=== PATIENT | female | born 1950 | race Caucasian/White ===

== ENCOUNTER 2016-10-11 22:16 | Emergency (ER) | payer BC ==
--- NOTE | 2016-10-11 23:18 | ED CLINICAL REPORT ---
Clinical Report - Physicians/Mid Levels [facility] [address] [place] [address] 10/11/2016 22:20 Patient: ENEIDA TAYLOR Time Seen: 22:26; initial patient contact. Arrived- By private vehicle. Historian- patient. HISTORY OF PRESENT ILLNESS Chief Complaint: Injury to right leg. The injury happened just prior to arrival. Occurred at home. The patient sustained a laceration (using a loofah to scrub her legs). Patient is not experiencing pain. Patient denies injury to the head or neck. REVIEW OF SYSTEMS The patient sustained a laceration. No swelling, tingling or suspected foreign body. All systems otherwise negative, except as recorded above. PAST HISTORY ( Hypercholesterolemia. ADDITIONAL SURGERIES: Bunion. Hernia Repair. Hip Surgery. Tonsillectomy.). SOCIAL HISTORY Never smoker. No alcohol use or drug use. ADDITIONAL NOTES The nursing notes have been reviewed with agreement regarding the chief complaint, PMH and patient medications and allergies. PHYSICAL EXAM Vital Signs: 10/11/2016 22:30 BP: 158/71. HR: 70. RR: 16. O2 saturation: 100%. Temp: 97.8 F. Have been reviewed. Hypertensive. Heart rate normal. Respiratory rate normal. Temperature normal. Oxygen saturation normal. Appearance: Alert. Oriented X3. No acute distress. Skin: (Small area of mild, active bleeding overlying an area of spider veins.). Extremities: Right leg: single puncture wound. No erythema, tenderness, swelling, laceration or abrasion. No ecchymosis. Extremities otherwise negative. Neuro, Vascular and Tendons: Vascular status intact. Sensation intact. Motor intact. Tendon function intact. Gait: Normal gait. Neuro: Oriented X 3. PROGRESS AND PROCEDURES Course of Care: 23:16 10/11/16. Bleeding stopped w/ thrombin gelfoam and pressure dressing x 15 minutes. Pt instructed to leave pressure dressing in place until morning and return w/ bleeding lasting longer than 5 minutes w/ direct pressure. Disposition: Discharged home in good and improved condition. Condition: good. CLINICAL IMPRESSION Single superficial skin avulsion of the right lower leg.Treatment not delayed. No infection present or foreign body present. INSTRUCTIONS Warnings: GENERAL WARNINGS: Return or contact your physician immediately if your condition worsens or changes unexpectedly, if not improving as expected, or if other problems arise. Bleeding lasts > 5 minutes with direct pressure. Your Current Medications: CONTINUE TAKING THE FOLLOWING MEDICATIONS: Crestor Oral. Follow-up: Follow up with your doctor if not better. Call for an appointment. Screening today revealed the patient's blood pressure to be in the hypertensive range. The patient should follow up with a primary care provider for blood pressure management. (Electronically signed by Mario Esteves Dr. 10/11/2016 23:19)
--- NOTE | 2016-10-11 23:18 | ED NURSING NOTES ---
Clinical Report - Nurses [facility] [address] [place] [address] 10/11/2016 22:20 [id number] TRI[facility] Triage time 22:26 Oct 11 2016. Acuity: LEVEL 4. Chief Complaint: (bleeding right lateral leg). 22:30 10/11/16. ANA MARIA COMA SCORE: Ana Maria Coma Scale: 15- eyes open spontaneously (4); best verbal response- oriented x 4 (5); best motor response- obeys commands (6). --22:30 Kimberly Cuenca R.N. 22:30 10/11/16. BP: 158/71. HR: 70. RR: 16. O2 saturation: 100%. Temp: 97.8 F. Pain level now 0/10. --22:30 Kimberly Cuenca R.N. Weight: 83.9 kg stated. Height/Length: 65 inches Per Patient. BMI: 30.8. --22:25 Kimberly Cuenca R.N. Medications Crestor Oral. --22:27 Kimberly Cuenca R.N. Allergies Oral steroids. --22:28 Kimberly Cuenca R.N. Medication/allergy information source: the patient. --22:30 Kimberly Cuenca R.N. History Arrived by private vehicle. Historian: patient. Accompanied by family. This started just prior to arrival. ( likely ruptured varicose vein. bleeding is controlled with pressure. onset 1 hour ago). No fever, weakness, cough, difficulty breathing or skin rash. Denies muscle aches. PAST MEDICAL HX: Immunizations: up-to-date. SOCIAL HX: Never smoker. No alcohol use or drug use. No infectious disease exposure. ABUSE ASSESSMENT: No report of abuse. SELF HARM ASSESSMENT: A self harm assessment was performed. The patient answered "no" to the question "Have you recently felt down, depressed, or hopeless?", "Have you noticed less interest or pleasure in doing things?", "Do you have thoughts of harming or killing yourself?", "Are you here because you tried to hurt yourself?", "Have you ever tried to hurt yourself before today?", "Have you recently had thoughts about harming or killing others?" and "Do you have any dangerous items in your possession?". NUTRITIONAL RISK ASSESSMENT: The nutritional risk assessment revealed no deficiencies. FUNCTIONAL ASSESSMENT: Functional assessment: no impairments noted. LEARNING NEEDS ASSESSMENT: The learning needs assessment revealed no barriers. SKIN INTEGRITY ASSESSMENT: Skin integrity risk assessment completed. No skin integrity risk identified. --22:30 Kimberly Cuenca R.N. PROBLEMS: Hypercholesterolemia. --22:29 Kimberly Cuenca R.N. ADDITIONAL SURGERIES: Bunion. Hernia Repair. Hip Surgery. Tonsillectomy. --22:29 Kimberly Cuenca R.N. Interventions ID band on patient. --22:30 Kimberly Cuenca R.N. PHYSICAL ASSESSMENT 22:34 10/11/16. Ambulatory to room. GENERAL / NEURO / PSYCH: Alert. Oriented X 4. HEENT: Pupils equal, round and reactive to light. RESPIRATORY: Breath sounds within normal limits. SKIN: Skin is warm and dry. ( small open are right lateral lower leg just below the knee, slow bleeding noted). --22:34 Kimberly Cuenca R.N. NURSING PROGRESS NOTES 22:32 10/11/16. The initial plan of care for this patient includes an assessment with efforts to address impairment of the integumentary system. This plan of care was discussed with the patient. Reassurance given. Patient identifiers checked. Call light placed in reach. Side rails up. Bed placed in lowest position. Brakes of bed on. Patient ready for evaluation. --22:32 Kimberly Cuenca R.N. 22:45 10/11/16. Bleeding controlled with manual pressure and compressive dressings (gelfoam applied). --22:54 Kimberly Cuenca R.N. DISPOSITION / DISCHARGE 23:25 10/11/16. Condition at departure: improved and stable. The goals identified in the patient's plan of care were met. No learning barriers present. Patient verbalized understanding. Written instructions provided in Mongolian. The patient was discharged home and accompanied by spouse. She left the Emergency Department ambulatory and via private vehicle. Spouse driving. FALL RISK ASSESSMENT: Fall risk assessment completed. No fall risk identified. --23:25 Kimberly Cuenca R.N. 23:24 10/11/16. BP: 131/52. HR: 77. RR: 16. O2 saturation: 100%. Temp: 98 F. Pain level now: 0/10. --23:25 Kimberly Cuenca R.N. Departure time: 23:25 Oct 11 2016. --23:25 Kimberly Cuenca R.N. Locked/Released at 10/11/2016 23:25 by Kimberly Cuenca R.N.
--- NOTE | 2016-10-11 23:18 | ED CLINICAL REPORT ---
Clinical Report - Physicians/Mid Levels [facility] [address] [place] [place] [address] 10/11/2016 22:20 Patient: ENEIDA TAYLOR Time Seen: 22:26; initial patient contact. Arrived- By private vehicle. Historian- patient. HISTORY OF PRESENT ILLNESS Chief Complaint: Injury to right leg. The injury happened just prior to arrival. Occurred at home. The patient sustained a laceration (using a loofah to scrub her legs). Patient is not experiencing pain. Patient denies injury to the head or neck. REVIEW OF SYSTEMS The patient sustained a laceration. No swelling, tingling or suspected foreign body. All systems otherwise negative, except as recorded above. PAST HISTORY ( Hypercholesterolemia. ADDITIONAL SURGERIES: Bunion. Hernia Repair. Hip Surgery. Tonsillectomy.). SOCIAL HISTORY Never smoker. No alcohol use or drug use. ADDITIONAL NOTES The nursing notes have been reviewed with agreement regarding the chief complaint, PMH and patient medications and allergies. PHYSICAL EXAM Vital Signs: 10/11/2016 22:30 BP: 158/71. HR: 70. RR: 16. O2 saturation: 100%. Temp: 97.8 F. Have been reviewed. Hypertensive. Heart rate normal. Respiratory rate normal. Temperature normal. Oxygen saturation normal. Appearance: Alert. Oriented X3. No acute distress. Skin: (Small area of mild, active bleeding overlying an area of spider veins.). Extremities: Right leg: single puncture wound. No erythema, tenderness, swelling, laceration or abrasion. No ecchymosis. Extremities otherwise negative. Neuro, Vascular and Tendons: Vascular status intact. Sensation intact. Motor intact. Tendon function intact. Gait: Normal gait. Neuro: Oriented X 3. PROGRESS AND PROCEDURES Course of Care: 23:16 10/11/16. Bleeding stopped w/ thrombin gelfoam and pressure dressing x 15 minutes. Pt instructed to leave pressure dressing in place until morning and return w/ bleeding lasting longer than 5 minutes w/ direct pressure. Disposition: Discharged home in good and improved condition. Condition: good. CLINICAL IMPRESSION Single superficial skin avulsion of the right lower leg.Treatment not delayed. No infection present or foreign body present. INSTRUCTIONS Warnings: GENERAL WARNINGS: Return or contact your physician immediately if your condition worsens or changes unexpectedly, if not improving as expected, or if other problems arise. Bleeding lasts > 5 minutes with direct pressure. Your Current Medications: CONTINUE TAKING THE FOLLOWING MEDICATIONS: Crestor Oral. Follow-up: Follow up with your doctor if not better. Call for an appointment. Screening today revealed the patient's blood pressure to be in the hypertensive range. The patient should follow up with a primary care provider for blood pressure management. (Electronically signed by Mario Esteves Dr. 10/11/2016 23:19)
--- NOTE | 2016-10-11 23:26 | ED DISCHARGE INSTRUCTIONS ---
Patient: ENEIDA TAYLOR General Instructions [facility] VisitID: [id number] [address] [place] [address] 66y, F Registration Date/Time: 10/11/2016 Single superficial skin avulsion of the right lower leg.Treatment not delayed. No infection present or foreign body present. INSTRUCTIONS Warnings: GENERAL WARNINGS: Return or contact your physician immediately if your condition worsens or changes unexpectedly, if not improving as expected, or if other problems arise. Bleeding lasts > 5 minutes with direct pressure. Your Current Medications: CONTINUE TAKING THE FOLLOWING MEDICATIONS: Crestor Oral. Follow-up: Follow up with your doctor if not better. Call for an appointment. Screening today revealed the patient's blood pressure to be in the hypertensive range. The patient should follow up with a primary care provider for blood pressure management. (Electronically signed by Mario Esteves Dr. 10/11/2016 23:19)
--- NOTE | 2016-10-11 23:26 | ED MED RECONCILIATION SUMMARY ---
Patient: ENEIDA TAYLOR Medication Reconciliation Report [facility] VisitID: [id number] [address] [place] [address] 66y, F Registration Date/Time: 10/11/2016 Weight: 83.9 kg Height/Length: 65 in. BMI: 30.8 ALLERGIES: Oral steroids The patient's Home Medications are listed below: CONTINUE TAKING THE FOLLOWING MEDICATIONS: Crestor Oral The source(s) of the original Home Medication information: patient The following Medications were given to the patient in the Emergency Department: None. The following Medications were prescribed to the patient: None.
--- NOTE | 2016-10-11 23:26 | ED DISCHARGE INSTRUCTIONS ---
Patient: ENEIDA TAYLOR General Instructions [facility] VisitID: [id number] [address] [place] [address] 66y, F Registration Date/Time: 10/11/2016 Single superficial skin avulsion of the right lower leg.Treatment not delayed. No infection present or foreign body present. INSTRUCTIONS Warnings: GENERAL WARNINGS: Return or contact your physician immediately if your condition worsens or changes unexpectedly, if not improving as expected, or if other problems arise. Bleeding lasts > 5 minutes with direct pressure. Your Current Medications: CONTINUE TAKING THE FOLLOWING MEDICATIONS: Crestor Oral. Follow-up: Follow up with your doctor if not better. Call for an appointment. Screening today revealed the patient's blood pressure to be in the hypertensive range. The patient should follow up with a primary care provider for blood pressure management. (Electronically signed by Mario Esteves Dr. 10/11/2016 23:19)
--- NOTE | 2016-10-11 23:26 | ED MED RECONCILIATION SUMMARY ---
Patient: ENEIDA TAYLOR Medication Reconciliation Report [facility] VisitID: [id number] [address] [place] [place] [address] 66y, F Registration Date/Time: 10/11/2016 Weight: 83.9 kg Height/Length: 65 in. BMI: 30.8 ALLERGIES: Oral steroids The patient's Home Medications are listed below: CONTINUE TAKING THE FOLLOWING MEDICATIONS: Crestor Oral The source(s) of the original Home Medication information: patient The following Medications were given to the patient in the Emergency Department: None. The following Medications were prescribed to the patient: None.
--- NOTE | 2016-10-11 23:26 | ED MAR SUMMARY ---
..... Medication Administration Record [facility] [address], [place] [id number] Patient: ENEIDA TAYLOR Visit ID: [id number] 66y, F Weight: 83.9 kg Height/Length: 65 in BMI: 30.8 ALLERGIES: Oral steroids
--- NOTE | 2016-10-11 23:26 | ED MAR SUMMARY ---
..... Medication Administration Record [facility] [address], [place] [id number] Patient: ENEIDA TAYLOR Visit ID: [id number] 66y, F Weight: 83.9 kg Height/Length: 65 in BMI: 30.8 ALLERGIES: Oral steroids
== END 2016-10-11 23:25 | disposition home or self-care (01) ==
LOC: ED SRH 22:16
DX: S81.811A Laceration without foreign body, right lower leg, initial encounter (principal); W45.8XXA Other foreign body or object entering through skin, initial encounter; Y93.E1 Activity, personal bathing and showering; Y92.002 Bathroom of unspecified non-institutional (private) residence as the place of occurrence of the external cause; Y99.9 Unspecified external cause status